=== PATIENT | female | born 1940 | race Two or more races ===

== ENCOUNTER 2019-05-17 19:47 | Inpatient (IN) | payer MEDICARE, OTHER ==
[~2019-05-17] VITALS: Ht 165.1 cm; Wt 84.8 kg
--- NOTE | 2019-05-17 20:30 | NUR ---
WILLIE FROM HOME. TO ER BED 11. AAOX4. NO RESP DISTRESS NOTED. NON ABULATORY, BROUGHT ON A GURNEY. C/O L ANKLE AND L KNEE PAIN. PT REPORTS THAT SHE SLIPPED ON A WET FLOOR AFTER TAKING A SHOWER. SHE DENIES HEAD TRAUMA. DENIES PASSING OUT. NOTED L ANKLE SWELLING, PURPLISH DISCOLORATION, LIMITED ROM. L KNEE NOTED WITH SWELLING AND PURPLISH DICOLORATION ON THE MEDIAL PART OF THE KNEE. SHE ALS HAS A LACERATION ON THE L MIDDLE FINGER, 2 CM NO ACTIVE BLEEDING- PROXIMAL PHALANGE. MD AT BEDSIDE FOR EVAL. AWAITING ORDERS
[2019-05-17] MEDS ORDERED: HYDROCODONE/APAP 5/325MG 1 EACH TABLET ONE (20:38)
[2019-05-17] MEDS ORDERED: HYDROCODONE/APAP 5/325MG 1 EACH TABLET PO ONE (21:00)
[2019-05-17] MEDS ORDERED: LIDOCAINE 1% INJ 50 ML MDV IJ ONE (21:25)
--- NOTE | 2019-05-17 21:51 | NUR ---
Kai gonzalez in ED - 05/17/19 at 2152 by PASHA 15 MIN PASS BLOOD TRANSFUSION START TIME. NO ADVERSE REACTION NOTED FROM PT. WILL CONTINUE TO MONITOR
[2019-05-17] MEDS ORDERED: MORPHINE SULFATE INJ 2 MG/ML DISP.SYRIN IV ONE (22:00)
--- NOTE | 2019-05-17 22:04 | NUR ---
CALLED NURSING SUP. FOR MS BED
--- NOTE | 2019-05-17 22:08 | NUR ---
MS [id number]
[2019-05-17 22:13] LABS: BASOPHILS # (AUTO) 0.1 /CMM (0.0-0.2); BASOPHILS % (AUTO) 1.3 % (0.0-2.0); EOSINOPHILS % (AUTO) 2.2 % (0.0-6.0); HEMATOCRIT 38 % (33-45); HEMOGLOBIN 12.1 g/dL (11.5-14.8); LYMPHOCYTES # (AUTO) 1.6 /CMM (0.8-4.8); LYMPHOCYTES % (AUTO) 19.3 % (20.0-44.0); MEAN CORPUSCULAR HGB CONC 32 g/dl (31.0-36.0); MEAN CORPUSCULAR VOLUME 85 fL (82-100); MONOCYTES # (AUTO) 0.5 /CMM (0.1-1.30); MONOCYTES % (AUTO) 6.1 % (2.0-12.0); NEUTROPHILS % (AUTO) 71.1 % (43.0-81.0); PLATELET COUNT (AUTO) 195 /CMM (150-450); RED BLOOD CELL COUNT(AUTO) 4.46 MIL/uL (4.0-5.2); WHITE BLOOD COUNT (AUTO) 8.5 K/uL (4.3-11.0)
[2019-05-17] MEDS ORDERED: MORPHINE SULFATE INJ 2 MG/ML DISP.SYRIN ONE (22:16)
[2019-05-17] MEDS ORDERED: ONDANSETRON HCL/PF 4 MG/2 ML VIAL ONE (22:16)
--- NOTE | 2019-05-17 22:27 | NUR ---
REPORT GIVEN TO CALEB VASQUEZ FOR FRANSISCA
[2019-05-17 22:29] LABS: CREATININE 1.3 mg/dL (0.6-1.3); POTASSIUM 4.8 mmol/L (3.5-5.1)
--- NOTE | 2019-05-17 22:36 | NUR ---
PT TRANSPORTED [place] [facility] [place] [facility] WITH EMT AT BEDSIDE. PT STABLE FOR TRANSPORT. NAD NOTED
[2019-05-17 23:00] VITALS: BP 132/62
[2019-05-17] MEDS ORDERED: Z GUARD REMEDY 2 OZ OINT TP PRN (23:00)
[2019-05-17] MEDS ORDERED: ACETAMINOPHEN 325 MG TABLET PO PRN (23:00)
[2019-05-17] MEDS ORDERED: MAG HYDROX/AL HYDROX/SIMETH 30 ML UDC PO PRN (23:00)
[2019-05-17] MEDS ORDERED: MAGNESIUM HYDROXIDE 30 ML UDC PO PRN (23:00)
[2019-05-17] MEDS ORDERED: ONDANSETRON HCL/PF 4 MG/2 ML VIAL IVP PRN (23:00)
[2019-05-17] MEDS ORDERED: DEXTROSE 50%-WATER 50 ML DISP.SYRIN IV PRN (23:00)
[2019-05-17] MEDS ORDERED: ONDANSETRON HCL/PF 4 MG/2 ML VIAL IV ONE (23:00)
--- NOTE | 2019-05-17 23:15 | NUR ---
MS RN ADMITTING NOTES ADMITTED A 78 Y/O FEMALE TO UNIT VIA GURNEY. ALERT ORIENTED X4 WITH EPISODE OF CONFUSION. ABLE TO MAKE NEEDS KNOWN WITH C/O PAIN ON V/S TAKEN AND RECORDED. PHYSICAL ASSESSMENT DONE. LUNGS CLEAR ON AUSCULTATION BILATERALLY. ABDOMEN SOF, NON-TENDER AND NON-DISTENDED WITH BOWELS SOUNDS ON FOUR QUADRANTS. PT NOTED WITH IV ACCESS ON HER RIGHT AC G#18 INTACT AND PATENT,NO S/S OF INFILTRATIONS NOTED. SAFETY MEASURES INITIATED, BED PLACED IN LOWEST LOCKED POSITION WITH SIDE-RAILS UP X2. BED ALARM ON. PATIENT HAS FINGER SPLINT ON HER LEFT HAND 3RD DIGIT, DRESSING INTACT DONE FROM ER, WITH SHORT LEG POSTERIOR SPLINT ON HER LEFT LOWER LEG,DONE AT ER AND SLIGHTLY SWOLLEN KNEE. PATIENT REFUSED TO TAKE PICTURES ON THE AFFECTED SITE AT THIS TIME. DENIES ANY PAIN AT THIS TIME, ALL SAFETY MEASURES IN PLACE, REPOSITIONED FOR COMFORT, CALL LIGHT WITHIN EASY. PATIENT UNABLE TO GIVE ACCURATE HOME MEDS LISTS, ALL BELONGINGS ACCOUNTED BY PRIMARY NURSE AND PRIMARY VOCATIONAL REHABILITATION SPECIALIST ASSIGNED, PLEASE REFER TO PATIENT'S CHART FOR RECORDS, OF MONEY/TRINH ON HAND, PATIENT REFUSED TO KEEP THE TRINH IN A SAFE. ALL NEEDS ANTICIPATED, GENESIS NERI AWARE OF THE ADMISSION, WILL CONTINUE TO MONITOR ACCORDINGLY.
[2019-05-18] MEDS: IV NS 0.9% 1,000 ML IV PRN ×2 (00:38→14:58)
[2019-05-18] MEDS: ZOLPIDEM TARTRATE 5 MG TABLET PO PRN (01:14)
[2019-05-18] MEDS: DOCUSATE SODIUM 100 MG CAPSULE PO SCH ×4 (01:14→17:03)
[2019-05-18] MEDS: HEPARIN SODIUM, PORCINE 5000 UNITS/1 ML VIAL SQ SCH ×3 (01:14→21:40)
[2019-05-18 06:25] LABS: BILIRUBIN,URINE NEGATIVE (NEGATIVE); BLOOD, URINE NEGATIVE Ery/uL (NEGATIVE); COLOR,URINE YELLOW (YELLOW); KETONES,URINE NEGATIVE (NEGATIVE); LEUKOCYTE ESTERASE ,URINE NEGATIVE (NEGATIVE); NITRITE, URINE NEGATIVE (NEGATIVE); PH,URINE 5.5 (5.0-8.0); PROTEIN,URINE NEGATIVE (NEGATIVE); UGLUCOSE 100 MG/DL mg/dL (NEGATIVE); UROBILINOGEN,URINE 0.2 EU/dL (0.2)
[2019-05-18 06:33] LABS: APPEARANCE,URINE CLEAR (CLEAR)
[2019-05-18] MEDS: BLOOD SUGAR DIAGNOSTIC 1 EACH STRIP IN SCH ×4 (06:55→21:59)
[2019-05-18] MEDS: INSULIN REGULAR, HUMAN 100 UNIT/ML 3 ML VIAL SQ PRN ×4 (06:56→22:02)
--- NOTE | 2019-05-18 07:45 | NUR ---
RN NOTES ALL NEEDS ATTENDED AND MET, ABLE TO REST AND SLEPT AT VERY SHORT INTERVALS, PATIENT INSISTING TO CONTACT HER PRIMARY PHYSICIAN AND FOOD PROCESSING SCIENTIST AND INSTRUCTED TO [employer] AND [employer] FOR THEIR CONTACT NUMBERS, PATIENT DOESN'T HAVE ANY RELATIVES HERE IN [place] ALL ARE IN [place], ENDORSED TO AM NURSE FOR CONTINUITY OF CARE.
[2019-05-18 08:00] VITALS: BP 157/77
--- NOTE | 2019-05-18 08:00 | NUR ---
RN NOTES RECEIVED PATIENT IN THE BED A/O X3 FEMALE, NO ACUTE RESPIRATORY DISTRESS. PATIENT WAS COMPLAINING OF PAIN ON LEFT UPPER AND LOWER EXTREMITIES BECAUSE OF FALL AT HOME. PATIENT HAS IMMOBILIZER LEFT LOWER LEG, SWELLED KNEE, AND IMMOBILIZED ON LEFT MIDDLE FINGER. ADMINISTERED SCHEDULED MEDICATION, V/S STABLE, NEEDS ATTENDED AND ANTICIPATED , INFUSING NS AT RIGHT AC AREA 75 ML/HR INTACT. CALL LIGHT WITHIN TO REACH. CONTINUED MONITORING.
[2019-05-18] MEDS ORDERED: PRAV40TA3 PO (08:27)
[2019-05-18] MEDS ORDERED: ROPI0.255 PO (08:27)
[2019-05-18] MEDS ORDERED: ISOS60TA4 PO (08:27)
[2019-05-18] MEDS ORDERED: OLME40TA18 PO (08:27)
[2019-05-18] MEDS ORDERED: METF-440 PO (08:27)
[2019-05-18] MEDS ORDERED: CLOP75TA15 PO (08:27)
[2019-05-18] MEDS ORDERED: ESOM40CA52 PO (08:27)
[2019-05-18] MEDS ORDERED: CHOL200059 PO (08:27)
[2019-05-18] MEDS ORDERED: TRAM50TA2 PO (08:27)
[2019-05-18] MEDS: HYDROCODONE/APAP 5/325MG 1 EACH TABLET PO PRN ×3 (09:58→22:07)
--- NOTE | 2019-05-18 09:58 | NUR ---
rn noted administered narco 5/325 mg po prn for left leg pain 10/10 per pain scale.v/s taken 157/77, p-82. seen by hospitalist Dr. Yen, call light within to reach, safety precaution maintained all the time.
[2019-05-18] MEDS: PANTOPRAZOLE 40 MG TABLET.DR PO SCH (09:59)
[2019-05-18 10:06] LABS: CALCIUM, SERUM 8.4 mg/dL (8.5-10.1); CREATININE 1.1 mg/dL (0.6-1.3); MAGNESIUM 1.7 mg/dL (1.8-2.4); PHOSPHORUS 3.5 mg/dL (2.5-4.9); POTASSIUM 4.8 mmol/L (3.5-5.1)
[2019-05-18 10:11] LABS: BASOPHILS % (AUTO) 0.6 % (0.0-2.0); EOSINOPHILS % (AUTO) 1.9 % (0.0-6.0); HEMATOCRIT 37 % (33-45); HEMOGLOBIN 11.8 g/dL (11.5-14.8); LYMPHOCYTES # (AUTO) 1.1 /CMM (0.8-4.8); MEAN CORPUSCULAR HGB CONC 31 g/dl (31.0-36.0); MEAN CORPUSCULAR VOLUME 86 fL (82-100); MONOCYTES # (AUTO) 0.6 /CMM (0.1-1.30); MONOCYTES % (AUTO) 7.8 % (2.0-12.0); NEUTROPHILS # (AUTO) 5.2 /CMM (1.8-8.9); NEUTROPHILS % (AUTO) 74.7 % (43.0-81.0); PLATELET COUNT (AUTO) 170 /CMM (150-450); RED BLOOD CELL COUNT(AUTO) 4.38 MIL/uL (4.0-5.2)
--- NOTE | 2019-05-18 14:23 | NUR ---
RN NOTES ADMINISTERED NARCO 5/325 MG PO PRN FOR GENERALIZED PAIN 03/06 PER PATIENT REQUEST, V/S TAKEN BP 136/83, P-78, ENCOURAGED TO INCREASE FLUID INTAKE. PATIENT TURN AND REPOSTION SELF IN THE BED, GET ASSISTED BEDSIDE COMMODE. CALL LIGHT WITHIN TO REACH, SEEN PATIENT BY PT, PATIENT STAND UP BUT REFUSED TO AMBULATE.
[2019-05-18] MEDS: Magnesium 1GM/D5W 100ML PREMIX 100 ML IV SCH ×2 (14:56→16:12)
[2019-05-18 16:00] VITALS: BP 145/60
--- NOTE | 2019-05-18 18:29 | NUR ---
RN NOTES BS-179 MG/DL COVERAGE GIVEN, ALSO ADMINISTERED SCHEDULED MEDICATION, MEDICATION WERE ADMINISTERED FOR PAIN EFFECTIVE. PATIENT TURN AND REPOSTION SELF IN TH BED, USING BEDSIDE COMMODE WITH ASSIST, NWB ON LEFT LEG. INFUSING NS AT 75 ML/HR ON RIGHT AC AREA INTACT. CONTINUED MONITORING. ENDORSED ONCOMING NURSE FOLLOW PLAN OF CARE.
--- NOTE | 2019-05-18 19:55 | NUR ---
RN NOTES RECEIVED PATIENT AWAKE, ALERT ORIENTED X4, RESTING COMFORTABLY, NO SIGNS OF ACUTE DISTRESS NOTED, SAFETY MEASURES IN PLACE, CALL LIGHT WITH IN EASY REACH, IV ACCESS INTACT AND PATENT, REPOSITIONED FOR COMFORT, ALL NEEDS ANTICIPATED, WILL CONTINUE TO MONITOR PATIENT ACCORDINGLY.
[2019-05-18 20:00] VITALS: BP 160/67
[2019-05-18 20:46] VITALS: BP 146/62
[2019-05-19] MEDS: BLOOD SUGAR DIAGNOSTIC 1 EACH STRIP IN SCH ×4 (06:46→21:20)
[2019-05-19] MEDS: INSULIN REGULAR, HUMAN 100 UNIT/ML 3 ML VIAL SQ PRN ×4 (06:47→21:37)
--- NOTE | 2019-05-19 07:29 | NUR ---
RN NOTES ALL NEEDS ATTENDED ABLE TO REST AND SLEPT AT INTERVALS, SAFETY MEASURES IN PLACE, ENDORSED TO AM NURSE FOR CONTINUITY OF CARE.
--- NOTE | 2019-05-19 07:41 | NUR ---
MS RN OPENING NOTES RECEIVED PT LAYING IN BED W/ HOB ELEVATED. PT IS A/O X4, AFEBRILE. RESPIRATIONS ARE EVEN AND UNLABORED, NOT IN ANY ACUTE DISTRESS NOTED. PT C/O PAIN / TO LLE, WILL MEDICATE ACCORDINGLY. SPLINT NOTED TO LLE. NO SOB, N/V. IV SITE TO RAC 18G, NO INFILTRATION NOTED. DRESSING KEPT CLEAN AND DRY. SAFETY MEASURES ARE IN PLACE. INSTRUCTED PT TO USE CALL LIGHT WHEN ASSISTANCE IS NEEDED, CALL LIGHT IS LEFT WITHIN REACH. WILL MONITOR THROUGHOUT SHIFT FOR CONTINUITY OF CARE.
[2019-05-19 08:00] VITALS: BP 116/51
--- NOTE | 2019-05-19 08:34 | NUR ---
MS RN NOTES-- PT WAS SEEN AND EXAMINED BY DR. SAGE.
[2019-05-19 08:37] LABS: BASOPHILS % (AUTO) 0.3 % (0.0-2.0); EOSINOPHILS % (AUTO) 0.6 % (0.0-6.0); HEMATOCRIT 32 % (33-45); HEMOGLOBIN 10.8 g/dL (11.5-14.8); LYMPHOCYTES # (AUTO) 2.4 /CMM (0.8-4.8); LYMPHOCYTES % (AUTO) 18.4 % (20.0-44.0); MEAN CORPUSCULAR HGB CONC 34 g/dl (31.0-36.0); MEAN CORPUSCULAR VOLUME 96 fL (82-100); MONOCYTES # (AUTO) 1.4 /CMM (0.1-1.30); MONOCYTES % (AUTO) 11.2 % (2.0-12.0); NEUTROPHILS # (AUTO) 8.9 /CMM (1.8-8.9); NEUTROPHILS % (AUTO) 69.5 % (43.0-81.0); PLATELET COUNT (AUTO) 265 /CMM (150-450); RED BLOOD CELL COUNT(AUTO) 3.33 MIL/uL (4.0-5.2); WHITE BLOOD COUNT (AUTO) 12.8 K/uL (4.3-11.0)
[2019-05-19 08:50] LABS: CALCIUM, SERUM 8.2 mg/dL (8.5-10.1); CREATININE 0.7 mg/dL (0.6-1.3); MAGNESIUM 1.6 mg/dL (1.8-2.4); POTASSIUM 4.1 mmol/L (3.5-5.1)
[2019-05-19] MEDS ORDERED: Medication Not On Formulary EA (Olmesartan Medoxomil 1 TAB) PO SCH (09:00)
[2019-05-19] MEDS ORDERED: METFORMIN 500 MG TABLET PO PRN (09:00)
[2019-05-19] MEDS ORDERED: ESOMEPRAZOLE MAGNESIUM PO SCH (09:00)
[2019-05-19] MEDS: CHOLECALCIFEROL 1,000 UNIT TABLET (VIT D3) PO SCH (09:21)
[2019-05-19] MEDS: TRAMADOL HCL 50 MG TABLET PO SCH ×2 (09:22→16:11)
[2019-05-19] MEDS: METFORMIN 500 MG TABLET PO SCH ×3 (09:22→16:11)
[2019-05-19] MEDS: PANTOPRAZOLE 40 MG TABLET.DR PO SCH (09:22)
[2019-05-19] MEDS: ropiniROLE 0.5 MG TABLET PO SCH (09:22)
[2019-05-19] MEDS: DOCUSATE SODIUM 100 MG CAPSULE PO SCH ×3 (09:22→16:11)
[2019-05-19] MEDS: Magnesium 1GM/D5W 100ML PREMIX 100 ML IV SCH ×2 (09:53→11:03)
--- NOTE | 2019-05-19 10:32 | NUR ---
MS RN NOTES-- CLARIFIED HEPARIN ORDER W/ DR SAGE PT IS ALSO ON [facility]. PER DR. SAGE, D/C HEPARIN.
[2019-05-19] MEDS: CLOPIDOGREL BISULFATE 75 MG TABLET PO SCH (10:43)
[2019-05-19 16:00] VITALS: BP 141/61
--- NOTE | 2019-05-19 18:30 | NUR ---
MS RN CLOSING NOTES ALL DUE MEDS GIVEN, NEEDS MET AND RENDERED. PT IS A/O X4, AFEBRILE. RESPIRATIONS ARE EVEN AND UNLABORED, NOT IN ANY ACUTE DISTRESS NOTED. PT DENIES ANY PAIN AT THIS TIME, NO C/O SOB, N/V. IV SITE TO RAC INTACT, NO INFILTRATION NOTED. DRESSING KEPT CLEAN AND DRY. SAFETY MEASURES ARE IN PLACE. REMINDED PT TO USE CALL LIGHT WHEN ASSISTANCE IS NEEDED, CALL LIGHT IS LEFT WITHIN REACH. WILL ENDORSE TO NEXT SHIFT FOR CONTINUITY OF CARE.
--- NOTE | 2019-05-19 19:05 | NUR ---
MS RN NOTE RECEIVED PT IN STABLE CONDITION A/O X4, CURRENTLY SPEAKING WITH NATIONAL SECRETARY. NO SIGNS OF SOB OR DISTRESS. NO C/O PAIN OR N/V. RAC #[address] WITH IVF INFUSING. ALL CURRENT NEEDS ATTENDED TO. BED LOW, LOCKED, UPPER RAILS UP, AND CALL LIGHT WITHIN REACH. WILL CONT. TO MONITOR.
[2019-05-19 20:00] VITALS: BP 144/68
[2019-05-19] MEDS: ZOLPIDEM TARTRATE 5 MG TABLET PO PRN (21:22)
[2019-05-19] MEDS ORDERED: ATORVASTATIN 10 MG TABLET PO SCH (22:00)
[2019-05-19] MEDS: HYDROCODONE/APAP 5/325MG 1 EACH TABLET PO PRN (22:55)
[2019-05-20] MEDS: IV NS 0.9% 1,000 ML IV PRN (00:29)
--- NOTE | 2019-05-20 05:32 | NUR ---
MS RN NOTE NOTIFIED KODI THAT WE ARE NOT ABLE TO GET AN IV IN THE PATIENT PER MD, NEW ORDER FOR MIDLINE. WILL NOTIFY CHARGE NURSE STEVIE AND SPRINKLER DRIVER TEAGAN. NEW ORDER CARRIED OUT.
[2019-05-20] MEDS: INSULIN REGULAR, HUMAN 100 UNIT/ML 3 ML VIAL SQ PRN ×2 (06:18→11:58)
--- NOTE | 2019-05-20 06:31 | NUR ---
MS RN NOTE PT REMAINS IN STABLE CONDITION A/O X4, CURRENTLY RESTING IN BED. NO SIGNS OF SOB OR DISTRESS. NO C/O PAIN OR N/V. AWARE THAT PT HAS NOT IV LINE, AWAITING MIDLINE INSERTION. ALL CURRENT NEEDS ATTENDED TO. BED LOW, LOCKED, UPPER RAILS UP, AND CALL LIGHT WITHIN REACH. WILL CONT. TO MONITOR AND ENDORSE TO NEXT SHIFT FOR FRANSISCA.
[2019-05-20 06:40] LABS: BASOPHILS % (AUTO) 0.6 % (0.0-2.0); HEMATOCRIT 38 % (33-45); HEMOGLOBIN 12.3 g/dL (11.5-14.8); LYMPHOCYTES # (AUTO) 1.4 /CMM (0.8-4.8); LYMPHOCYTES % (AUTO) 24.4 % (20.0-44.0); MEAN CORPUSCULAR HGB CONC 32 g/dl (31.0-36.0); MEAN CORPUSCULAR VOLUME 84 fL (82-100); MONOCYTES # (AUTO) 0.5 /CMM (0.1-1.30); MONOCYTES % (AUTO) 7.8 % (2.0-12.0); NEUTROPHILS # (AUTO) 3.8 /CMM (1.8-8.9); NEUTROPHILS % (AUTO) 65.2 % (43.0-81.0); PLATELET COUNT (AUTO) 167 /CMM (150-450); RED BLOOD CELL COUNT(AUTO) 4.51 MIL/uL (4.0-5.2); WHITE BLOOD COUNT (AUTO) 5.8 K/uL (4.3-11.0)
[2019-05-20 07:00] LABS: CALCIUM, SERUM 8.8 mg/dL (8.5-10.1); CREATININE 0.9 mg/dL (0.6-1.3); MAGNESIUM 1.7 mg/dL (1.8-2.4); POTASSIUM 4.8 mmol/L (3.5-5.1)
--- NOTE | 2019-05-20 07:30 | NUR ---
RN OPENING NOTE PT WAS RECEIVED IN BED AT LOWEST AND LOCKED POSITION WITH SIDE RAILS UP X2, A/O X4 BREATHING EVEN AND UNLABORED ON RA, DOES HAVE SOME COMPLAINT OF PAIN ON LEFT SIDE OF HER BODY DUE TO FALL, NO IV IN PLACE BUT PER NIGHT RN MIDLINE WAS ORDERED FOR THE PATIENT THEREFORE AWAITING FOR IT TO BE PLACED, NO SURGICAL INTERVENTION PER SURGICAL TEAM, SAFETY PRECAUTIONS IN PLACE, CALL LIGHT IN REACH, WILL MONITOR ACCORDINGLY
[2019-05-20] MEDS: BLOOD SUGAR DIAGNOSTIC 1 EACH STRIP IN SCH ×2 (07:37→11:58)
[2019-05-20 08:00] VITALS: BP 133/59
[2019-05-20] MEDS: ropiniROLE 0.5 MG TABLET PO SCH (08:44)
[2019-05-20] MEDS: CLOPIDOGREL BISULFATE 75 MG TABLET PO SCH (08:44)
[2019-05-20] MEDS: DOCUSATE SODIUM 100 MG CAPSULE PO SCH ×2 (08:44→12:29)
[2019-05-20] MEDS: CHOLECALCIFEROL 1,000 UNIT TABLET (VIT D3) PO SCH (08:44)
[2019-05-20 08:45] VITALS: BP 133/59
[2019-05-20] MEDS: TRAMADOL HCL 50 MG TABLET PO SCH (08:45)
[2019-05-20] MEDS: METFORMIN 500 MG TABLET PO SCH ×2 (08:45→12:36)
[2019-05-20] MEDS: PANTOPRAZOLE 40 MG TABLET.DR PO SCH (08:46)
[2019-05-20] MEDS ORDERED: ISOSORBIDE MONONITRATE (30MG) 30 MG TAB.SR.24H PO SCH (09:00)
[2019-05-20] MEDS ORDERED: LOSARTAN POTASSIUM 50 MG TABLET PO SCH (09:00)
[2019-05-20] MEDS ORDERED: Magnesium 1GM/D5W 100ML PREMIX 100 ML IV SCH (10:30)
[2019-05-20] MEDS ORDERED: MAGNESIUM OXIDE 400 MG TABLET PO ONE (11:00)
--- NOTE | 2019-05-20 14:50 | NUR ---
RN NOTE PT REFUSED PHOTOS AT THIS TIME STATING "LET ME SLEEP, I AM TIRED AND HAVE NOT SLEPT MUCH". INFORMED AND EDUCATED ABOUT PURPOSE OF PHOTOS BUT PT STILL REFUSED.
--- NOTE | 2019-05-20 15:47 | NUR ---
RN NOTE REPORT GIVEN TO DEVON AT [facility] AT THIS TIME
--- NOTE | 2019-05-20 17:00 | NUR ---
DISCHARGE NOTE PT WAS D/C AT THIS TIME IN MEDICALLY STABLE CONDITION TO [facility] WHERE REPORT WAS GIVEN TO DEVON. ID BAND WERE REMOVED. LEFT WITH NO IV IN PLACE. PT REFUSED FOR PHOTOS SKIN ISSUES TO BE TAKEN. ALL D/C PAPERWORK, EXITCARE, AND BELONGING LIST WERE SIGNED DISCUSSED AND HANDED TO THE PT AND EMT CREW. ALL BELONGINGS WERE RETURNED TO THE PATIENT. ALL NEEDS WERE ATTENDED TO DURING HER STAY. PT LEFT AT THIS TIME IN MEDICALLY STABLE CONDITION WITH EMT CREW
== END 2019-05-20 16:55 | DRG 563 ==
LOC: ER 19:48 → MED 22:14
PROVIDERS: ADMIT Nurse Practitioner Acute Care; ATTEND Nurse Practitioner Acute Care
DX: S82.832A Other fracture of upper and lower end of left fibula, initial encounter for closed fracture (principal); D68.59 Other primary thrombophilia; S93.402A Sprain of unspecified ligament of left ankle, initial encounter; I10 Essential (primary) hypertension; E86.0 Dehydration; I25.10 Atherosclerotic heart disease of native coronary artery without angina pectoris; W18.2XXA Fall in (into) shower or empty bathtub, initial encounter; Y93.E1 Activity, personal bathing and showering; Y92.002 Bathroom of unspecified non-institutional (private) residence as the place of occurrence of the external cause; Z85.528 Personal history of other malignant neoplasm of kidney; Z90.5 Acquired absence of kidney; E83.42 Hypomagnesemia; Z96.651 Presence of right artificial knee joint; Z95.5 Presence of coronary angioplasty implant and graft; Z90.49 Acquired absence of other specified parts of digestive tract; Z91.013 Allergy to seafood; Z91.018 Allergy to other foods; Z79.01 Long term (current) use of anticoagulants; Z79.84 Long term (current) use of oral hypoglycemic drugs; Z79.899 Other long term (current) drug therapy; Z74.09 Other reduced mobility; Z68.31 Body mass index [BMI] 31.0-31.9, adult; E11.65 Type 2 diabetes mellitus with hyperglycemia; S61.412A Laceration without foreign body of left hand, initial encounter; E66.9 Obesity, unspecified
CPT/HCPCS: 36415; 73140-TC; 73564-TC; 73590-TC; 73610-TC; 80048-TC; 80061-TC; 81000-TC; 82962-TC; 83735-TC; 84100-TC; 85025-TC; 85730-TC; 87081-TC; 97112-TC; 97116-TC; 97530-TC; A6403; G0378; J1644; J1815; J2270; J2405; J3475; J3490; J7030